=== PATIENT | female | born 1980 | race Caucasian/White ===

== ENCOUNTER → 2020-08-31 12:07 | Outpatient (BNVA) | payer BC, SELFPAY | PROVIDERS: Visit Provider Nurse Practitioner Family | DX: M25.562 Pain in left knee (principal) | CPT/HCPCS: 73562 ==

== ENCOUNTER → 2021-09-11 09:42 | Outpatient (BNVA) | payer BC, SELFPAY | PROVIDERS: Visit Provider Podiatrist Foot & Ankle Surgery | DX: Z01.818 Encounter for other preprocedural examination (principal) | CPT/HCPCS: 80048; 85025 ==

== ENCOUNTER 2022-10-22 13:53 | Outpatient (CLI) | payer BC, SELFPAY ==
--- NOTE | 2022-10-22 14:02 | MM_ITS ---
WS: [id number] BILATERAL 3D TOMOSYNTHESIS DIGITAL SCREENING MAMMOGRAPHY WITH CAD CLINICAL INFORMATION: SCREEN HISTORY: Screening mammogram. No current complaints. COMPARISON: Baseline TECHNIQUE: Bilateral CC and MLO views. FINDINGS: The breasts are composed of heterogeneous fibroglandular density tissue, which can limit the detectio n of small underlying mass lesions. Heterogeneous parenchymal tissue upper outer breasts bilaterally. No suspicious mass, asymmetry, calcifications, or architectural distortion. No evidence of malignanc y. MM/[place] [id number] IMPRESSION: BI-RADS: 1-Negative FOLLOW UP: 1 Year Follow-up Recommend return to annual screening mammography.
== END 2022-10-22 13:54 | disposition home or self-care (01) ==
LOC: RAD 13:55
PROVIDERS: PCP Nurse Practitioner Family; Visit Provider Nurse Practitioner Family
DX: Z12.31 Encounter for screening mammogram for malignant neoplasm of breast (principal)
CPT/HCPCS: 77063; 77067

== ENCOUNTER 2023-12-30 10:54 | Outpatient (CLI) | payer BC, SELFPAY ==
--- NOTE | 2023-12-30 11:00 | MM_ITS ---
WS: [id number] Bilateral screening 3D tomosynthesis digital mammogram, 12/30/2023 Clinical Data: SCREENING Comparison: 10/22/2022 Findings: The breast parenchymal pattern shows fibroglandular tissue especially in the upper outer quadrants of both breasts. No spiculated masses or clustered calcifications are seen. There are no secondary sign s of carcinoma. MM/[place] [id number] Impression: 1. Negative bilateral mammogram unchanged. 2. Recommend annual screening mammograms. BIRADS: 1-Negative FOLLOW UP: 1 Year Follow-up The CAD box car checker was used.
== END 2023-12-30 10:55 | disposition home or self-care (01) ==
PROVIDERS: PCP Nurse Practitioner Family; Visit Provider Nurse Practitioner Family
DX: Z12.31 Encounter for screening mammogram for malignant neoplasm of breast (principal)
CPT/HCPCS: 77063; 77067

== ENCOUNTER 2024-03-21 08:10 | Outpatient (CLI) | payer BC, SELFPAY ==
--- NOTE | 2024-03-21 08:19 | US_ITS ---
WS: [id number] Complete ABDOMINAL ULTRASOUND HISTORY: LEFT UPPER QUADRANT ABDOMINAL PAIN/HERNIA EVALUATION COMPARISON: None available. Liver: 14.2 cm in length. Normal size liver and echogenicity. No bile duct dilatation or mass. Portal Vein: Normal hepatopetal flow with monophasic waveform. Gallbladder: Normally distended gallbladder with no stones or wall thickening. CBD: 0.3 cm Pancreas: Normal size and echogenicity. Right kidney: 10.1 cm x 5.9 x 6.3 cm. Cortex:1.2 cm. No hydronephrosis. Central cyst in the renal pelvis 4.7 x 5.1 x 4.3 cm. Left kidney: 11.3 cm x 5.5 cm x 6.0 cm. Cortex: 1.4 cm. Normal size kidney. There is a central renal pelvic cyst measuring 2.3 x 2.9 x 2.3 cm. Spleen: 10.7 cm. Normal size and echogenicity. Aorta and IVC: Unremarkable abdominal aorta and IVC. No ventral wall abdominal hernia. US/US abdomen complete* [id number] Impression: 1. Normal gallbladder. 2. No bile duct dilatation. 3. Bilateral renal cysts, simple cysts as above.
== END 2024-03-21 08:11 | disposition home or self-care (01) ==
LOC: RAD 08:10
PROVIDERS: PCP Nurse Practitioner Family; Visit Provider Nurse Practitioner Family
DX: Q61.02 Congenital multiple renal cysts (principal); R10.12 Left upper quadrant pain
CPT/HCPCS: 76700

== ENCOUNTER 2025-03-27 09:08 | Outpatient (CLI) | payer BC, SELFPAY ==
--- NOTE | 2025-03-27 09:14 | MM_ITS ---
WS: [id number] SCREENING DIGITAL BREAST TOMOSYNTHESIS MAMMOGRAM WITH CAD HISTORY: SCREENING COMPARISON: 12/30/2023, 10/22/2022 Bilateral CC and MLO with tomosynthesis and synthetic mammography submitted. Computer aided detection analyzed. Breast composition: The breasts are heterogeneously dense, which may obscure small masses. Dense asymmetry in the upper outer quadrant of each breast. Increasing density and asymmetry middle depth upper outer quadrant RIGHT breast. No distortion or calcifications. No suspicious grouping of calcifications. MM/MM scr tomosynthesis [id number] IMPRESSION: BI-RADS: 0 - Incomplete: Need additional imaging evaluation FOLLOW UP: Need Additional Imaging RIGHT breast: Spot compression views (CC and MLO). True ML. Ultrasound to follo w if abnormality persists.
== END 2025-03-27 09:09 | disposition home or self-care (01) ==
LOC: RAD 09:10
PROVIDERS: PCP Nurse Practitioner Family; Visit Provider Nurse Practitioner Family
DX: Z12.31 Encounter for screening mammogram for malignant neoplasm of breast (principal); R92.333 Mammographic heterogeneous density, bilateral breasts; N64.89 Other specified disorders of breast
CPT/HCPCS: 77063; 77067

== ENCOUNTER 2025-04-18 12:25 | Outpatient (CLI) | payer BC, SELFPAY ==
--- NOTE | 2025-04-18 12:33 | US_ITS ---
WS: [id number] ADDITIONAL VIEWS RIGHT MAMMOGRAM WITH DIGITAL BREAST TOMOSYNTHESIS. RIGHT BREAST ULTRASOUND HISTORY: ABNORMAL MAMMOGRAM COMPARISON: 03/27/2025, 12/30/2023 RIGHT MAMMOGRAM: Spot compression views and true ML with digital breast tomosynthesis and SM. Breast composition: There are scattered areas of fibroglandular density. Dense fibroglandular tissue persists in the upper outer quadrant. No mass identified. No distortion. RIGHT BREAST ULTRASOUND 2-D and color Doppler imaging submitted. There is dense fibroglandular tissue in the upper outer quadrant. No mass or shadowing. Short segment dilated duct at 12:00, 2 cm from the nipple. There is no increased vascularity. US/US breast RT limited* [id number] IMPRESSION: BI-RADS: 2 - Benign. FOLLOW UP: 1 Year Follow-up Return to annual screening mammography.
--- NOTE | 2025-04-18 12:37 | MM_ITS ---
WS: [id number] ADDITIONAL VIEWS RIGHT MAMMOGRAM WITH DIGITAL BREAST TOMOSYNTHESIS. RIGHT BREAST ULTRASOUND HISTORY: ABNORMAL MAMMOGRAM COMPARISON: 03/27/2025, 12/30/2023 RIGHT MAMMOGRAM: Spot compression views and true ML with digital breast tomosynthesis and SM. Breast composition: There are scattered areas of fibroglandular density. Dense fibroglandular tissue persists in the upper outer quadrant. No mass identified. No distortion. RIGHT BREAST ULTRASOUND 2-D and color Doppler imaging submitted. There is dense fibroglandular tissue in the upper outer quadrant. No mass or shadowing. Short segment dilated duct at 12:00, 2 cm from the nipple. There is no increased vascularity. MM/MM diag RT tomosynthesis [id number] IMPRESSION: BI-RADS: 2 - Benign. FOLLOW UP: 1 Year Follow-up Return to annual screening mammography.
== END 2025-04-18 12:26 | disposition home or self-care (01) ==
PROVIDERS: PCP Nurse Practitioner Family; Visit Provider Nurse Practitioner Family
DX: R92.8 Other abnormal and inconclusive findings on diagnostic imaging of breast (principal); R92.321 Mammographic fibroglandular density, right breast
CPT/HCPCS: 76642; 77061; G0279